=== PATIENT | male | born 1995 | race Caucasian/White ===

== ENCOUNTER 2017-06-30 01:51 | Emergency (ER) | payer BC ==
[~2017-06-30] VITALS: Ht 180.3 cm; Wt 66.0 kg
[2017-06-30 02:03] VITALS: Ht 180.3 cm; Wt 66.0 kg
[2017-06-30] MEDS ORDERED: SOD CHLORIDE 0.9% 1,000 ML IV STA (02:23)
[2017-06-30] MEDS ORDERED: LORAZEPAM 2 MG INJ IV STA (02:23)
[2017-06-30 02:53] LABS: BASOPHILS % 0.2 % (0.0-2.0); EOSINOPHILS # 0.1 10^3/ul (0.0-0.5); HEMATOCRIT 40.2 % (42.0-52.0); HEMOGLOBIN 13.4 g/dl (14.0-18.0); LYMPHOCYTES # 2.6 10^3/ul (0.8-2.9); LYMPHOCYTES % 21.8 % (15.0-51.0); MEAN CORPUSCULAR HEMOGLOBIN 29.5 pg (29.0-33.0); MEAN CORPUSCULAR HGB CONC 33.3 g/dl (32.0-37.0); MEAN CORPUSCULAR VOLUME 88.5 fl (82.0-101.0); MEAN PLATELET VOLUME 9.8 fl (7.4-10.4); MONOCYTE # 1.4 10^3/ul (0.3-0.9); MONOCYTES % 11.2 % (0.0-11.0); NEUTROPHIL # 7.9 10^3/ul (1.6-7.5); NEUTROPHILS % 65.3 % (39.0-77.0); PLATELET COUNT 261 10^3/UL (140-415); RED BLOOD COUNT 4.54 10^6/ul (4.70-6.10); RED CELL DISTRIBUTION WIDTH 12.9 % (11.5-14.5)
--- NOTE | 2017-06-30 03:11 | RADRPT ---
PROCEDURE: Noncontrast CT Head. CLINICAL INDICATION: Pain. TECHNIQUE: Noncontrast CT of the head was obtained. The administered radiation dose was CTDI vol = 45 mGy, DLP = 720 mGy-cm. COMPARISON: No pertinent prior examinations were submitted for comparison. FINDINGS: The ventricles and sulci are within normal limits. There is no acute intracranial hemorrhage or ext ra-axial fluid collection. There is no mass effect. No midline shift is identified. There is no loss of lugo-white differentiation to suggest acute infarction. The orbits are within normal limits. The paranasal sinuses and mastoid air cells are without fluid. No destructive osseous lesion is identified. IMPRESSION: No acute findings. RPTAT: HIKT .Rod Drake MD, MD Date Time Electronically viewed and signed by .Rod Drake MD, on 06/30/2017 03:11 .T/
[2017-06-30 03:17] LABS: CALCIUM 9.8 mg/dl (8.4-10.2); CREATININE 1.33 mg/dl (0.61-1.24); POTASSIUM 4.1 mmol/L (3.5-5.1)
--- NOTE | 2017-06-30 04:23 | ERD ---
ER Documentation Chief Complaint Date/Time DATE: 06/30/17 TIME: 04:23 Chief Complaint seizure at home,no hx of sz,c/o OLIVA HPI Patient is a 22-year-old with depression and anxiety who presents saying that he "passed out". The patient was alone when this happened and his cousin heard him fall to the ground. The paramedics were called but did not decide to transfer him to the emergency department. He was laying face down. His whole body was shaking when he was found by his cousin. His eyes rolled back in his head. This never happened before. He denies any drug use. The patient has a primary doctor Dr. Mikey Islas. Upon review of old medical records this is the patient's third visit to the ER since 2012. ROS All systems reviewed and are negative except as per history of present illness. Medications Home Meds No Active Prescriptions or Reported Meds Allergies Allergies: Coded Allergies: No Known Allergy (Unverified , 12/20/15) PMhx/Soc Medical and Surgical Hx: pt denies Surgical Hx History of Surgery: No Anesthesia Reaction: No Hx Neurological Disorder: Yes (new onset seizure) Hx Respiratory Disorders: No Hx Cardiac Disorders: No Hx Psychiatric Problems: Yes (depression) Hx Miscellaneous Medical Probl: No Hx Alcohol Use: No Hx Substance Use: No Hx Tobacco Use: No Smoking Status: Never smoker FmHx Family History: diabetes Physical Exam Vitals Vital Signs Date Time Temp Pulse Resp B/P Pulse Ox O2 Delivery O2 Flow Rate FiO2 06/30/17 02:03 98.9 86 18 135/90 96 Physical Exam Const: No acute distress Head: Atraumatic Eyes: Normal Conjunctiva ENT: Normal External Ears, Nose and Mouth. Neck: Full range of motion..~ No meningismus. Resp: Clear to auscultation bilaterally Cardio: Regular rate and rhythm, no murmurs Abd: Soft, non tender, non distended. Normal bowel sounds Skin: No petechiae or rashes Back: No midline or flank tenderness Ext: No cyanosis, or edema Neur: Awake and alert, cranial nerves II through XII intact, strength is 5 out of 5 in all 4 extremities, no seizure activity Psych: Normal Mood and Affect Result Diagram: 06/30/17 0232 06/30/17 0232 Results 24 hrs Laboratory Tests Test 06/30/17 02:32 White Blood Count 12.010^3/ul Red Blood Count 4.5410^6/ul Hemoglobin 13.4g/dl Hematocrit 40.2% Mean Corpuscular Volume 88.5fl Mean Corpuscular Hemoglobin 29.5pg Mean Corpuscular Hemoglobin Concent 33.3g/dl Red Cell Distribution Width 12.9% Platelet Count 04489^3/UL Mean Platelet Volume 9.8fl Neutrophils % 65.3% Lymphocytes % 21.8% Monocytes % 11.2% Eosinophils % 1.0% Basophils % 0.2% Nucleated Red Blood Cells % 0.0/100WBC Neutrophils # 7.910^3/ul Lymphocytes # 2.610^3/ul Monocytes # 1.410^3/ul Eosinophils # 0.110^3/ul Basophils # 0.010^3/ul Nucleated Red Blood Cells # 0.010^3/ul Sodium Level 145mmol/L Potassium Level 4.1mmol/L Chloride Level 105mmol/L Carbon Dioxide Level 22mmol/L Anion Gap 22 Blood Urea Nitrogen 21mg/dl Creatinine 1.33mg/dl Glucose Level 96mg/dl Calcium Level 9.8mg/dl Current Medications Medications (Trade) Dose Ordered Sig/Kera Route PRN Reason Start Time Stop Time Status Last Admin Dose Admin Sodium Chloride (NS) 1,000 ml @ 1,000 mls/hr Q1H STAT IV 06/30/17 02:23 06/30/17 03:22 DC 06/30/17 02:39 Lorazepam (Ativan) 1 mg ONCE STAT IV 06/30/17 02:23 06/30/17 02:24 DC 06/30/17 02:40 Procedures/MDM EKG read by me: Rate/Rhythm: Regular rate and rhythm at a rate of 92 Intervals: Normal Impression: No evidence of ischemia or arrhythmia CT brain negative per radiology. Patient is a 22-year-old male presents with acute seizure. The patient had a new onset first-time seizure. The patient has no abnormalities on his CT scan such as bleed or mass. The patient's laboratory studies are basically normal. I believe outpatient management is appropriate at this time. The patient was given Ativan to prevent further seizure. However I do believe the patient will need close follow-up with his primary doctor and may require further outpatient treatment and workup for new onset seizure. A form will be sent to the [employer] and the patient was told that he is not able to drive. The patient could return for any worsening symptoms. I doubt meningitis, intra-cranial hemorrhage, or intracranial mass. Departure Diagnosis: Primary Impression: Seizure Condition: Fair Patient Instructions: Seizure, New Onset, Unk Cause [Adult] Additional Instructions: Call your primary care doctor TOMORROW for an appointment during the next 1-2 days.See the doctor sooner or return here if your condition worsens before your appointment time. ARLETH CALIXTO MD Jun 30, 2017 04:23
[2017-06-30 04:56] VITALS: BP 122/83; PULSE 77; RESP 19
== END 2017-06-30 05:16 | disposition home or self-care (01) ==
LOC: E/R 01:51
DX: R56.9 Unspecified convulsions (principal); R40.2142 Coma scale, eyes open, spontaneous, at arrival to emergency department; R40.2252 Coma scale, best verbal response, oriented, at arrival to emergency department; R40.2362 Coma scale, best motor response, obeys commands, at arrival to emergency department; R40.4 Transient alteration of awareness
CPT/HCPCS: 36415; 70450; 80048; 85025; 93005; 96374; 99285; J2060; J7030

== ENCOUNTER → 2017-07-15 | Outpatient (CLI) | payer BC ==
--- NOTE | 2017-07-15 23:50 | CONS ---
EEG NOTE Report Details ELECTROENCEPHALOGRAM DATE OF TEST: 07-15-2017 EEG#: [id number] REFERRING PHYSICIAN: Mikey Islas MD HISTORY: The patient is a 22-year-old male with a history of syncope with eyes rolling and body shaking. This EEG is requested to rule out an epileptic disorder. MEDICATIONS: Wellbutrin, Lexapro. CONDITIONS OF RECORDING: This EEG was recorded on the [employer] digital machine, using the International 10-20 System of electrodes plus monitoring of EKG. FINDINGS: During alert wakefulness, there is a well developed 9 Hz posterior dominant rhythm, which attenuates normally with eye opening. The remainder of the awake background is also normal. Photic stimulation elicits driving responses at some intermediate flash frequencies. Hyperventilation produces a mild degree of diffuse slowing. The patient became drowsy but did not pass into sleep. No asymmetries, focal abnormalities or epileptiform discharges were seen. IMPRESSION: Normal electroencephalogram. COMMENT: A normal EEG does not in and of itself rule out an epileptic disorder , especially if sleep is not obtained, but neither is there any positive evidence in this recording of cerebral dysfunction or epileptic irritability. If clinically indicated, a repeat recording with better sleep deprivation and/ or sedation to obtain sleep may increase the probability of epileptiform discharges if there is an epileptic diathesis. YOLA TOMAS MD Jul 15, 2017 23:49
== END | disposition home or self-care (01) ==
LOC: EEG 11:44
PROVIDERS: ATTEND Internal Medicine
DX: R55 Syncope and collapse (principal)
CPT/HCPCS: 95819